=== PATIENT | male | born 1950 | race Caucasian/White ===

== ENCOUNTER 2019-07-18 10:31 | Emergency (ER) | payer MEDICARE ==
[~2019-07-18] VITALS: Ht 187.9 cm; Wt 117.2 kg
--- NOTE | 2019-07-18 11:03 | ED Chest Pain ---
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 The patient presents with 2 concerns. First, he notes intermittent exertional chest discomfort which is sharp and severe and affects his left chest, his left shoulder and goes all the way down his left arm. Discomfort is 10 out of 10 in severity when it comes on and it does seem to do so when he is exerting himself and to get better when he rests. Discomfort is nonpleuritic. It does not radiate to the interscapular back or to the abdomen. He last had an episode this morning that resolved about an hour prior to arrival and lasted about an hour. He states that over the past week he has been having these episodes about 5 or 6 times a day, and even at nighttime when he is trying to rest. Associated mild shortness of breath. No associated nausea or vomiting, cold sweats or chills, abdominal pain, flank pain, interscapular back pain although patient does note some radiation to his posterior left shoulder. Patient has a secondary concern of a mild bilateral frontal headache for the last 3 weeks. He states the last time he had any kind of headache was when he had a head bleed 5 years ago. This headache has no exacerbating or ameliorating factors and has no associated photophobia or nausea. He denies focal weakness, numbness, tingling, neck stiffness, vision changes. He is alert and oriented 4 in a mormon into the emergency department with a narrow, steady gait. He denies any injury or trauma recently. He does take a full strength aspirin daily, and did so this morning. Allergies and Home Medications Allergies Coded Allergies: No Known Drug Allergies (Unverified , 07/18/19) Patient Home Medication List Home Medication List Reviewed: Yes Review of Systems Review of Systems Constitutional: see HPI All Other Systems Reviewed Negative Unless Noted: Yes (Negative excepted noted.) Past Jligzfr-Ixpnvs-Btdgpw Hx Past Med/Social Hx: Reviewed Nursing Past Med/Soc Hx Family Medical History Reviewed Nursing Family Hx Physical Exam Vital Signs Capillary Refill : Height, Weight, BMI Height: '" Weight: lbs. oz. kg; BMI Method: General Appearance: No Apparent Distress Other comments This is an older male appearing nontoxic and in no acute distress. Head is normocephalic and atraumatic. Neck is supple and nontender. Oropharynx is moist. Lungs are clear to auscultation in all stations. There is a normal S1 and S2 without rubs or gallops and capillary refill is appropriate, less than 2 seconds globally. Pulses are equal to bilateral extremities. Abdomen is soft, nontender and nondistended and no pulsatile masses noted to the abdomen. Skin is warm and dry without cyanosis, clubbing or edema. Psychiatrically, the patient didn't straights appropriate mood and affect and is alert. From a neurologic standpoint, patient moves all extremities equally, is alert and oriented 4, and related to the emergency room with a narrow, steady gait and no lateralizing deficits are appreciated. Progress/Results/Core Measures Results/Orders Lab Results Laboratory Tests Test 07/18/19 10:45 Range/Units White Blood Count 5.5 4.3-11.0 10^3/uL Red Blood Count 5.68 4.35-5.85 10^6/uL Hemoglobin 16.2 13.3-17.7 G/DL Hematocrit 48 40-54 % Mean Corpuscular Volume 84 80-99 FL Mean Corpuscular Hemoglobin 29 25-34 PG Mean Corpuscular Hemoglobin Concent 34 32-36 G/DL Red Cell Distribution Width 12.5 10.0-14.5 % Platelet Count 138 130-400 10^3/uL Mean Platelet Volume 11.0 H 7.4-10.4 FL Neutrophils (%) (Auto) 61 42-75 % Lymphocytes (%) (Auto) 28 12-44 % Monocytes (%) (Auto) 5 0-12 % Eosinophils (%) (Auto) 5 0-10 % Basophils (%) (Auto) 1 0-10 % Neutrophils # (Auto) 3.4 1.8-7.8 X 10^3 Lymphocytes # (Auto) 1.5 1.0-4.0 X 10^3 Monocytes # (Auto) 0.3 0.0-1.0 X 10^3 Eosinophils # (Auto) 0.3 0.0-0.3 10^3/uL Basophils # (Auto) 0.0 0.0-0.1 10^3/uL Prothrombin Time 12.0 L 12.2-14.7 SEC INR Comment 0.9 0.8-1.4 Activated Partial Thromboplast Time 25 24-35 SEC Sodium Level 142 135-145 MMOL/L Potassium Level 3.9 3.6-5.0 MMOL/L Chloride Level 107 98-107 MMOL/L Carbon Dioxide Level 23 21-32 MMOL/L Anion Gap 12 5-14 MMOL/L Blood Urea Nitrogen 23 H 7-18 MG/DL Creatinine 1.17 0.60-1.30 MG/DL Estimat Glomerular Filtration Rate > 60 BUN/Creatinine Ratio 20 Glucose Level 156 H 70-105 MG/DL Calcium Level 9.4 8.5-10.1 MG/DL Corrected Calcium 9.3 8.5-10.1 MG/DL Total Bilirubin 0.5 0.1-1.0 MG/DL Aspartate Amino Transf (AST/SGOT) 17 5-34 U/L Alanine Aminotransferase (ALT/SGPT) 21 0-55 U/L Alkaline Phosphatase 84 40-136 U/L Troponin I < 0.30 <0.30 NG/ML Pro-B-Type Natriuretic Peptide 90.9 H <75.0 PG/ML Total Protein 6.4 6.4-8.2 GM/DL Albumin 4.1 3.2-4.5 GM/DL My Orders Orders - REYNALDO SIMEON MD Cbc With Automated Diff (07/18/19 10:52) Comprehensive Metabolic Panel (07/18/19 10:52) Troponin I Fs (07/18/19 10:52) Ekg Tracing (07/18/19 10:52) Chest 1 View Ap/Pa Only (07/18/19 10:52) Protime With Inr (07/18/19 10:52) Partial Thromboplastin Time (07/18/19 10:52) Probnp Fs (07/18/19 10:52) Ct Head Wo (07/18/19 10:52) Progress Progress Note : Time: 11:06 Progress Note Clinical examination reassuring and EKG nonacute with T-wave changes anteroseptally and no priors immediately available for comparison. 69-year-old gentleman with known occlusive coronary artery disease previously requiring CABG who presents with 1 week of intermittent quite severe substernal chest discomfort radiating to the left arm and the shoulder, apparently exertional in nature. Concerning clinical history given patient's medical history and despite what is apparently a nonischemic stress test a couple of months ago I feel the patient is at high risk for acute coronary syndrome. I discussed with him that he will minimally require an observation admission and attention from cardiology to rule out ACS. Patient and his family request that he be transferred for this purpose to [facility] where his medical records specialist is. Secondarily, patient notes a headache for the last 3 weeks which she states is unusual for him. He states the last time he had a similar headache was when he h ad a head bleed. We will therefore check a head CT to rule out acute intracranial process. Update 1240: Workup generally unremarkable and reassuring as above. Troponin/EKG nonacute. We will proceed with transfer to [facility] per patient's express request (his medical records specialist is located there) for ACS r/o, observation on telemetry, attention from cardiology and further care as indicated. Patient graciously accepted in transfer by Dr. Finnegan. EKG : Comment Sinus rhythm, rate 67, no acute ST elevation or depression, first-degree AV block, T-wave inversions anterior septal leads, uncertain chronicity, IN 231, QRS 100, QTc 381, EP interpretation. Diagnostic Imaging Comments INDICATION: Chest pain Frontal chest obtained at 1052 a.m. Heart and mediastinal silhouette are normal in appearance. The lungs are clear. There is no pneumothorax or pleural fluid. Patient has had previous sternotomy. IMPRESSION: Poststernotomy changes with no acute process visualized in the chest. Dictated on workstation # [id number] CT HEAD WO INDICATION: Headache and tinnitus TECHNIQUE: Routine non contrast-enhanced axial images were obtained from the skull base to the vertex. Auto Exposure Controls were utilized during the CT exam to meet ALARA standards for radiation dose reduction COMPARISON: None. FINDINGS: The ventricles and cortical sulci are diffusely prominent, compatible with age-related volume loss. There is no midline shift or mass-effect. No acute intra-axial hemorrhage is seen. There are no abnormal areas of increased or decreased density to suggest acute hemorrhage or edema. No extra-axial masses or collections are present. The bony calvarium is intact. The visualized paranasal sinuses are unremarkable. The mastoid air cells are clear. IMPRESSION: 1. No acute intracranial abnormality. No CT evidence of mass, acute infarct or intracranial hemorrhage. Dictated on workstation # [id number] Departure Impression Primary Impression: Other chest pain Additional Impression: Headache Disposition: XFER SHT-TRM HOSP Condition: Stable REYNALDO SIMEON MD Jul 18, 2019 11:03
--- NOTE | 2019-07-18 11:22 | Diagnostic Imaging Report ---
INDICATION: Headache and tinnitus TECHNIQUE: Routine non contrast-enhanced axial images were obtained from the skull base to the vertex. Auto Exposure Controls were utilized during the CT exam to meet ALARA standards for radiation dose reduction COMPARISON: None. FINDINGS: The ventricles and cortical sulci are diffusely prominent, compatible with age-related volume loss. There is no midline shift or mass-effect. No acute intra-axial hemorrhage is seen. There are no abnormal areas of increased or decreased density to suggest acute hemorrhage or edema. No extra-axial masses or collections are present. The bony calvarium is intact. The visualized paranasal sinuses are unremarkable. The mastoid air cells are clear. IMPRESSION: 1. No acute intracranial abnormality. No CT evidence of mass, acute infarct or intracranial hemorrhage. Dictated by: Dictated on workstation # [id number]
--- NOTE | 2019-07-18 11:24 | Diagnostic Imaging Report ---
INDICATION: Chest pain Frontal chest obtained at 1052 a.m. Heart and mediastinal silhouette are normal in appearance. The lungs are clear. There is no pneumothorax or pleural fluid. Patient has had previous sternotomy. IMPRESSION: Poststernotomy changes with no acute process visualized in the chest. Dictated by: Dictated on workstation # [id number]
--- NOTE | 2019-07-18 12:00 | NUR ---
Patient states he is still pain free at this time.
[2019-07-18 12:35] LABS: HEMATOCRIT 48 % (40-54); HEMOGLOBIN 16.2 G/DL (13.3-17.7); INR 0.9 (0.8-1.4); MEAN CORPUSCULAR HEMOGLOBIN 29 PG (25-34); MEAN CORPUSCULAR HGB CONC 34 G/DL (32-36); MEAN CORPUSCULAR VOLUME 84 FL (80-99); WHITE BLOOD COUNT 5.5 10^3/uL (4.3-11.0)
[2019-07-18 12:36] LABS: BASOPHILS % (AUTO) 1 % (0-10); EOSINOPHILS # (AUTO) 0.3 10^3/uL (0.0-0.3); EOSINOPHILS % (AUTO) 5 % (0-10); LYMPHOCYTES # (AUTO) 1.5 X 10^3 (1.0-4.0); LYMPHOCYTES % (AUTO) 28 % (12-44); MONOCYTES # (AUTO) 0.3 X 10^3 (0.0-1.0); MONOCYTES % (AUTO) 5 % (0-12); NEUTROPHILS # (AUTO) 3.4 X 10^3 (1.8-7.8); NEUTROPHILS % (AUTO) 61 % (42-75); PLATELET COUNT 138 10^3/uL (130-400); RED CELL DISTRIBUTION WIDTH 12.5 % (10.0-14.5)
[2019-07-18 12:37] LABS: ALANINE AMINOTRANSFERASE 21 U/L (0-55); ALKALINE PHOSPHATASE 84 U/L (40-136); BILIRUBIN,TOTAL 0.5 MG/DL (0.1-1.0); BUN/CREATININE RATIO 20; CALCIUM 9.4 MG/DL (8.5-10.1); CARBON DIOXIDE 23 MMOL/L (21-32); CHLORIDE 107 MMOL/L (98-107); CREATININE SERUM 1.17 MG/DL (0.60-1.30); GFR ESTIMATED > 60; GLUCOSE 156 MG/DL (70-105); POTASSIUM 3.9 MMOL/L (3.6-5.0); SODIUM 142 MMOL/L (135-145)
[2019-07-18 12:38] LABS: ALBUMIN 4.1 GM/DL (3.2-4.5); TOTAL PROTEIN 6.4 GM/DL (6.4-8.2)
[2019-07-18 13:26] VITALS: BP 141/80
== END 2019-07-18 13:48 | disposition short-term general hospital (02) ==
LOC: ER FS 10:33
DX: R07.89 Other chest pain (principal); R51 Headache; I10 Essential (primary) hypertension; E78.5 Hyperlipidemia, unspecified; I25.10 Atherosclerotic heart disease of native coronary artery without angina pectoris; Z95.5 Presence of coronary angioplasty implant and graft; Z95.1 Presence of aortocoronary bypass graft; Z79.82 Long term (current) use of aspirin
CPT/HCPCS: 36415; 70450; 71045; 80053; 83880; 84484; 85025; 85610; 85730; 93005

== ENCOUNTER → 2019-10-27 | Outpatient (CLI) | payer MEDICARE ==
[2019-10-27 13:51] LABS: CHOLESTEROL 177 MG/DL (< 200); HDL CHOLESTEROL 41 MG/DL (40-60); TRIGLYCERIDES 263 MG/DL (<150); VLDL CHOLESTEROL 53 MG/DL (5-40)
[2019-10-27 15:12] LABS: ALBUMIN 4.1 GM/DL (3.2-4.5); BILIRUBIN,TOTAL 0.5 MG/DL (0.1-1.0); CALCIUM 9.2 MG/DL (8.5-10.1); CREATININE SERUM 1.23 MG/DL (0.60-1.30); POTASSIUM 4.1 MMOL/L (3.6-5.0); TOTAL PROTEIN 6.9 GM/DL (6.4-8.2)
== END ==
LOC: LAB FS 08:32
PROVIDERS: ATTEND Family Medicine
DX: I10 Essential (primary) hypertension (principal)
CPT/HCPCS: 36415; 80053; 80061

== ENCOUNTER → 2020-05-07 | Outpatient (CLI) | payer MEDICARE ==
[2020-05-07 14:47] LABS: ALBUMIN 4.1 GM/DL (3.2-4.5); CHLORIDE 108 MMOL/L (98-107); POTASSIUM 4.5 MMOL/L (3.6-5.0); SODIUM 141 MMOL/L (135-145)
[2020-05-07 14:48] LABS: CALCIUM 9.3 MG/DL (8.5-10.1)
[2020-05-07 14:49] LABS: TRIGLYCERIDES 124 MG/DL (<150); VLDL CHOLESTEROL 25 MG/DL (5-40)
[2020-05-07 14:50] LABS: GLUCOSE 99 MG/DL (70-105); TOTAL PROTEIN 6.9 GM/DL (6.4-8.2)
[2020-05-07 14:51] LABS: CARBON DIOXIDE 24 MMOL/L (21-32)
[2020-05-07 14:52] LABS: BILIRUBIN,TOTAL 0.6 MG/DL (0.1-1.0)
[2020-05-07 14:53] LABS: ALKALINE PHOSPHATASE 85 U/L (40-136); GFR ESTIMATED > 60
[2020-05-07 14:54] LABS: CHOLESTEROL 130 MG/DL (< 200)
[2020-05-07 14:55] LABS: BUN/CREATININE RATIO 23
[2020-05-07 14:56] LABS: HDL CHOLESTEROL 45 MG/DL (40-60)
[2020-05-07 14:57] LABS: ALANINE AMINOTRANSFERASE 31 U/L (0-55)
== END ==
LOC: LAB FS 07:34
PROVIDERS: ATTEND Family Medicine
DX: Z12.5 Encounter for screening for malignant neoplasm of prostate (principal); E78.5 Hyperlipidemia, unspecified; I25.810 Atherosclerosis of coronary artery bypass graft(s) without angina pectoris
CPT/HCPCS: 80053; 80061; G0103; 36415; 84153

== ENCOUNTER → 2020-05-15 | Outpatient (CLI) | payer MEDICARE ==
[2020-05-15 11:36] LABS: WHITE BLOOD COUNT 6.9 10^3/uL (4.3-11.0)
[2020-05-15 11:37] LABS: BASOPHILS % (AUTO) 1 % (0-10); EOSINOPHILS # (AUTO) 0.4 10^3/uL (0.0-0.3); EOSINOPHILS % (AUTO) 6 % (0-10); HEMATOCRIT 48 % (40-54); HEMOGLOBIN 15.9 G/DL (13.3-17.7); LYMPHOCYTES # (AUTO) 1.4 X 10^3 (1.0-4.0); LYMPHOCYTES % (AUTO) 20 % (12-44); MEAN CORPUSCULAR HEMOGLOBIN 28 PG (25-34); MEAN CORPUSCULAR HGB CONC 33 G/DL (32-36); MEAN CORPUSCULAR VOLUME 85 FL (80-99); MEAN PLATELET VOLUME 10.4 FL (7.4-10.4); MONOCYTES # (AUTO) 0.4 X 10^3 (0.0-1.0); MONOCYTES % (AUTO) 5 % (0-12); NEUTROPHILS # (AUTO) 4.7 X 10^3 (1.8-7.8); NEUTROPHILS % (AUTO) 68 % (42-75); PLATELET COUNT 157 10^3/uL (130-400); RED CELL DISTRIBUTION WIDTH 13.1 % (10.0-14.5)
== END ==
LOC: LAB FS 11:14
PROVIDERS: ATTEND Family Medicine
DX: N50.82 Scrotal pain (principal)
CPT/HCPCS: 36415; 85025

== ENCOUNTER → 2020-11-12 | Outpatient (CLI) | payer MEDICARE ==
[2020-11-12 09:18] LABS: ALANINE AMINOTRANSFERASE 27 U/L (0-55); ALBUMIN 4.3 GM/DL (3.2-4.5); ALKALINE PHOSPHATASE 132 U/L (40-136); BILIRUBIN,TOTAL 0.5 MG/DL (0.1-1.0); BUN/CREATININE RATIO 20; CALCIUM 9.2 MG/DL (8.5-10.1); CARBON DIOXIDE 29 MMOL/L (21-32); CHLORIDE 107 MMOL/L (98-107); CREATININE SERUM 1.16 MG/DL (0.60-1.30); GFR ESTIMATED > 60; GLUCOSE 106 MG/DL (70-105); POTASSIUM 4.2 MMOL/L (3.6-5.0); SODIUM 144 MMOL/L (135-145); TOTAL PROTEIN 6.8 GM/DL (6.4-8.2)
[2020-11-12 15:14] LABS: CHOLESTEROL 148 MG/DL (< 200); HDL CHOLESTEROL 40 MG/DL (40-60); TRIGLYCERIDES 204 MG/DL (<150); VLDL CHOLESTEROL 41 MG/DL (5-40)
== END ==
LOC: LAB FS 08:39
PROVIDERS: ATTEND Family Medicine
DX: I10 Essential (primary) hypertension (principal)
CPT/HCPCS: 36415; 80053; 80061

== ENCOUNTER → 2021-09-04 | Outpatient (CLI) | payer MEDICARE ==
[2021-09-04 09:38] LABS: BILIRUBIN,TOTAL 0.5 MG/DL (0.1-1.0); CALCIUM 9.4 MG/DL (8.5-10.1); CREATININE SERUM 1.04 MG/DL (0.60-1.30); POTASSIUM 4.4 MMOL/L (3.6-5.0); TOTAL PROTEIN 6.6 GM/DL (6.4-8.2)
== END ==
LOC: LAB FS 08:00
PROVIDERS: ATTEND Family Medicine
DX: Z12.5 Encounter for screening for malignant neoplasm of prostate (principal); E78.5 Hyperlipidemia, unspecified
CPT/HCPCS: 36415; 80053; 80061; G0103; 84153

== ENCOUNTER → 2022-03-06 | Outpatient (CLI) | payer MEDICARE ==
[2022-03-06 09:08] LABS: ALBUMIN 4.1 GM/DL (3.2-4.5); BILIRUBIN,TOTAL 0.5 MG/DL (0.1-1.0); CALCIUM 8.9 MG/DL (8.5-10.1); CREATININE SERUM 1.06 MG/DL (0.60-1.30); TOTAL PROTEIN 6.8 GM/DL (6.4-8.2)
== END ==
LOC: LAB FS 08:17
PROVIDERS: ATTEND Family Medicine
DX: I10 Essential (primary) hypertension (principal)
CPT/HCPCS: 36415; 80053; 80061